=== PATIENT | male | born 1985 | race Caucasian/White ===

== ENCOUNTER 2022-10-01 13:05 | Outpatient (CLI) | payer OTHER, SELFPAY ==
[2022-10-01 23:02] LABS: SARS PCR* POSITIVE SARS-CoV-2 (Negative)
== END 2022-10-01 13:06 | disposition home or self-care (01) ==
LOC: FBOREF 13:06
PROVIDERS: PCP Family Medicine; Visit Provider Family Medicine
DX: U07.1 COVID-19 (principal); J39.8 Other specified diseases of upper respiratory tract; R05.9 Cough, unspecified; R50.9 Fever, unspecified
CPT/HCPCS: 87635

== ENCOUNTER 2023-05-14 13:01 | Outpatient (CLI) | payer OTHER, SELFPAY | END 2023-05-14 13:02 | disposition home or self-care (01) | PROVIDERS: PCP Family Medicine; Visit Provider Family Medicine | DX: Z00.00 Encounter for general adult medical examination without abnormal findings (principal); E78.2 Mixed hyperlipidemia; R53.83 Other fatigue; M25.50 Pain in unspecified joint; Z13.6 Encounter for screening for cardiovascular disorders | CPT/HCPCS: 80048; 80061; 84443; 85025; 86039; 86431; 86618 ==

== ENCOUNTER 2023-06-12 10:56 | Outpatient (CLI) | payer OTHER, SELFPAY ==
--- NOTE | 2023-06-12 11:00 | CRLHL7_ITS ---
For Patients: As a result of the Cures Act, medical imaging exams and procedure reports are released immediately into your electronic medical record. You may view this report before your referring provider. If you have questions, please contact your health care provider. Indication: NASAL CONGESTION, SINUS INFECTIONS Technique: Performed without IV contrast Comparison: None available Findings: Frontal sinuses: Mild mucosal thickening within the inferior frontal sinuses. Ethmoid sinuses: Mild mucosal thickening within the anterior left ethmoid sinus. 4.6 millimeter mucous retention cyst left ethmoid sinus. Clear right ethmoid sinus. Maxillary sinuses: Mucosal thickening within the maxillary sinuses. Small mucous retention cysts bilaterally measuring up to 1.1 cm. Mucosal thickening adjacent to the right ostiomeatal complex without obstruction. The maxillary sinus drainage pathways are patent on both sides. Sphenoid sinuses: Clear, including both sphenoethmoidal recesses. Nasal Cavity: Rightward curvature of the nasal septum. Heidi bullosa left middle turbinate. Paradoxical turn of the right middle turbinate. No TMJ abnormalities identified. The visualized portions of the orbits, intracranial contents and upper soft tissue neck are grossly negative. Impression: 1. Bilateral sinus disease with patency of the sinus drainage pathways. 2. Rightward curvature of the nasal septum. Heidi bullosa left middle turbinate. Please note that all CT scans at this facility use dose modulation, iterative reconstruction, and/or weight-based dosing when appropriate to reduce radiation dose to as low as reasonably achievable. Dictated by Vincezno Mercedes MD @ 06/12/2023 12:41:36 PM (Electronically Signed)
== END 2023-06-12 10:57 | disposition home or self-care (01) ==
PROVIDERS: PCP Family Medicine; Visit Provider Family Medicine
DX: R09.81 Nasal congestion (principal); J34.2 Deviated nasal septum
CPT/HCPCS: 70486

== ENCOUNTER 2023-08-16 08:43 | Day surgery (SDC) | payer OTHER, SELFPAY ==
[2023-08-16] VITALS (12 sets, daily range): BP systolic 131–169; BP diastolic 77–109; PULSE 66–93; RESP 16; TEMP 36.5–37.3; O2SAT 94–100; BMI 36.9
[2023-08-16] MEDS: SODIUM CHLORIDE 0.9 % (FLUSH) 10 ML SYRINGE IVF (09:15)
[2023-08-16] MEDS: LACTATED RINGERS 1000 ML 1,000 ML 100 ML IV (09:15)
[2023-08-16] MEDS: OXYMETAZOLINE 0.05% NASAL SPRAY 2 SPRAY NOSTRIL-B (09:30)
[2023-08-16] MEDS: COCAINE HCL 4 % 4 ML SOLUTION NOSTRIL-B (11:28)
[2023-08-16] MEDS: AYR SALINE NASAL GEL 1 APPLIC NOSTRIL-B (11:28)
[2023-08-16] MEDS: MUPIROCIN 1 GM PACKET 1 APPLIC TOPICAL (11:28)
[2023-08-16] MEDS: BUPIVACAINE 0.5%/EPINEPHRINE 0.9 MG (30.9 ML) INJECTION (11:50)
--- NOTE | 2023-08-16 11:51 | W.ANESCHARGE ---
Anesthesia Charges Start Date/Time Anesthesia Start Date: 08/16/23 Anesthesia Start Time: 11:17 Stop Date/Time Anesthesia Stop Date: 08/16/23 Anesthesia Stop Time: 12:08
--- NOTE | 2023-08-16 11:55 | W.PM.ENTPROC ---
Procedure Note Date of procedure: 08/16/23 Procedure: Preop diagnosis nasal obstruction deviated septum nasal headache left middle turbinate malathi bullosa right inferior turbinate hypertrophy Postoperative diagnosis same Procedure nasal septoplasty, submucous partial resection right inferior turbinate, endoscopic partial resection left middle turbinate malathi bullosa Procedure reads: Under general trach anesthesia patient was prepped draped usual fashion the nose injected and decongested. A right hemitransfixion incision was made left anterior tunnel was created. Was noted the mid septal mucosa was quite friable so I did not pursue beyond 4 mm. I did make an inferior incision and elevated the mucosa over the left premaxillary wing deformity and removed that with a 15 blade and laid the flap back down. In addition the left area 4 impaction was resected in a similar fashion. By freeing the anterior septal mucosa on both sides I was able to move the septum back to midline. The hemitransfixion was closed with 2 4-0 chromic sutures. Stab incision was made in the anterior of the right inferior turbinate a tunnel created with a [place] dissector. The malathi bone was outfractured in a very conservative anterior submucous resection performed. Coblation Wand was used for hemostasis. The remainder procedure was done with the available assistance of a 0 degree endoscope. Incision was made in the lateral aspect of the left middle turbinate malathi. The bone was infractured and the turbinate was crushed with the [place] forceps. Silastic stents were secured on either side the septum and 2 Merocel packs were placed on the left side the nose 1 beneath the malathi in 1 to hold the septum midline. Patient procedure well was taken recovery in satisfactory condition. Blood loss during procedure less than 25 mL. Surgeon: Cortez Shen MD
[2023-08-16] MEDS: fentaNYL 100 MCG/2 ML inj 50 MCG IVP (12:18)
--- NOTE | 2023-08-16 12:45 | W.ANESCHARGE ---
Anesthesia Charges Start Date/Time Anesthesia Start Date: 08/16/23 Anesthesia Start Time: 11:17 Stop Date/Time Anesthesia Stop Date: 08/16/23 Anesthesia Stop Time: 12:08
[2023-08-16] MEDS: OXYCODONE 5 MG TABLET PO (12:56)
== END 2023-08-16 14:10 | disposition home or self-care (01) ==
LOC: OR 08:44
PROVIDERS: PCP Family Medicine; Visit Provider Otolaryngology
PROC: (CPT 31231; principal; 2023-08-16 10:15)
DX: J34.2 Deviated nasal septum (principal); J34.3 Hypertrophy of nasal turbinates; R51.9 Headache, unspecified; J34.89 Other specified disorders of nose and nasal sinuses
CPT/HCPCS: 30520; 30140; 31240; 00160; A9270; J0330; J1100; J2250; J2405; J2704; J3010; J7120

== ENCOUNTER 2024-01-03 09:11 | Outpatient (CLI) | payer OTHER, SELFPAY | END 2024-01-03 09:12 | disposition home or self-care (01) | PROVIDERS: PCP Family Medicine; Visit Provider Family Medicine | DX: R53.83 Other fatigue (principal) | CPT/HCPCS: 84403; 84443 ==

== ENCOUNTER 2024-01-08 08:00 | Outpatient (CLI) | payer OTHER, SELFPAY | END 2024-01-08 08:01 | disposition home or self-care (01) | LOC: NFLDREF 01-30 14:01 | PROVIDERS: PCP Family Medicine; Referring Provider Family Medicine; Visit Provider Family Medicine | DX: R53.83 Other fatigue (principal); N62 Hypertrophy of breast | CPT/HCPCS: 82533; 82670; 84146 ==

== ENCOUNTER 2024-01-17 09:04 | Outpatient (CLI) | payer OTHER, SELFPAY | END 2024-01-17 09:05 | disposition home or self-care (01) | LOC: NFLDREF 01-20 05:17 | PROVIDERS: PCP Family Medicine; Referring Provider Family Medicine; Visit Provider Family Medicine | DX: R79.89 Other specified abnormal findings of blood chemistry (principal) | CPT/HCPCS: 84403 ==

== ENCOUNTER 2024-06-29 08:02 | Outpatient (CLI) | payer OTHER, SELFPAY | END 2024-06-29 08:03 | disposition home or self-care (01) | LOC: NFLDREF 07-01 08:40 | PROVIDERS: PCP Family Medicine; Referring Provider Family Medicine; Visit Provider Family Medicine | DX: R79.89 Other specified abnormal findings of blood chemistry (principal) | CPT/HCPCS: 84403 ==

== ENCOUNTER 2025-01-01 09:38 | Outpatient (CLI) | payer OTHER, SELFPAY | END 2025-01-01 09:39 | disposition home or self-care (01) | PROVIDERS: PCP Family Medicine; Visit Provider Family Medicine | DX: E78.2 Mixed hyperlipidemia (principal); R53.83 Other fatigue; R79.89 Other specified abnormal findings of blood chemistry | CPT/HCPCS: 80048; 80061; 84403 ==

== ENCOUNTER 2025-03-25 09:00 | Outpatient (CLI) | payer OTHER, SELFPAY ==
--- NOTE | 2025-03-25 09:15 | CRLHL7_ITS ---
For Patients: As a result of the Century Cures Act, medical imaging exams and procedure reports are released immediately into your electronic medical record. You may view this report before your referring provider. If you have questions, please contact your health care provider. INDICATION: Low back pain. COMPARISON: 09/29/2021. TECHNIQUE: Sagittal T1, T2, and STIR sequences. Axial T1 and T2 weighted sequences. FINDINGS: Normal vertebral body alignment. No fractures. No vertebral body loss of height. No spondylosis. No evidence injury. No suspicious osseous lesions. Normal conus terminates at L1. T12-L1 L1-2: No spinal canal neural foraminal narrowing. L2-3: No spinal canal neural foraminal narrowing. L3-4: Disc degeneration and posterior disc bulge. Superimposed right paracentral subarticular disc extrusion measuring approximately 9 mm in diameter with 14 mm of caudal migration. Mild narrowing of the spinal canal. Extruded disc impinges upon the traversing right L4 nerve root. No neural foraminal narrowing. L4-5: Progressive disc degeneration and right paracentral to foraminal disc herniation measuring approximately 4 mm in short axis. Mild narrowing of spinal canal. Potential impingement of the traversing right L5 nerve root. Moderate narrowing of bilateral foramina. L5-S1: Disc degeneration and diffuse disc bulge. Stable central left paracentral disc protrusion metric approximately 4 mm in short axis. No narrowing of spinal canal. No impingement of the traversing S1 nerve roots. Mild narrowing of the bilateral foramina. Normal visualized SI joints. Normal paraspinal soft tissues. IMPRESSION: 1. Normal alignment. No fractures. 2. At L3-4, disc degeneration posterior disc bulge. New right paracentral and subarticular disc extrusion with caudal migration. Potential impingement of the traversing right L4 nerve root. 3. At L4-5, progressive disc degeneration. Right paracentral to foraminal disc herniation. Mild narrowing of the spinal canal. Moderate narrowing of the bilateral neural foramina 4. At L5-S1, mild narrowing of the bilateral neural foramina Dictated by Chuckie Velasquez MD @ 03/27/2025 10:38:17 AM (Electronically Signed)
== END 2025-03-25 09:01 | disposition home or self-care (01) ==
LOC: MRI 09:00
PROVIDERS: PCP Family Medicine; Visit Provider Family Medicine
DX: M54.50 Low back pain, unspecified (principal); M51.369 Other intervertebral disc degeneration, lumbar region without mention of lumbar back pain or lower extremity pain; M51.27 Other intervertebral disc displacement, lumbosacral region
CPT/HCPCS: 72148

== ENCOUNTER 2025-07-16 10:48 | Outpatient (CLI) | payer OTHER, SELFPAY | END 2025-07-16 10:49 | disposition home or self-care (01) | LOC: FBOREF 10:48 | PROVIDERS: PCP Family Medicine; Visit Provider Family Medicine | DX: R79.89 Other specified abnormal findings of blood chemistry (principal) | CPT/HCPCS: 84403 ==